=== PATIENT | male | born 1950 | race African-American/Black ===

== ENCOUNTER → 2016-05-14 | Outpatient (CLI) | payer OTHER ==
[~2016-05-14] MED LIST: AMLO10TA2 PO; ASPI81TA81; CAPT100T PO; CENTTAB8 PO; HYDR50TA3 PO; LISI40TA PO; METF1000 PO; METO50TA11 PO; PRAV20TA PO
[2016-05-14 12:07] LABS: ANION GAP 8 MEQ/L (5-15); BICARBONATE 31.4 MEQ/L (21.0-32.0); BLOOD UREA NITROGEN 14 MG/DL (7-18); CHLORIDE 104 MEQ/L (98-107); GLOMERULAR FILTRATION RATE 86 ML/MIN (>89); GLUCOSE,FASTING 89 MG/DL (74-99); POTASSIUM 3.4 MEQ/L (3.5-5.1); SODIUM (NA) 143 MEQ/L (136-145)
[2016-05-14 14:16] LABS: MICRO ALBUMIN RANDOM URINE RAW 20.9 MG/L (0.0-30.0)
[2016-05-14 17:14] LABS: HEMOGLOBIN A1a 1.4 %; HEMOGLOBIN A1b 1.7 %; HEMOGLOBIN Ao 84.6 %; HEMOGLOBIN LA1C 1.9 %; HEMOGLOBIN P3 3.8 %
== END ==
LOC: CLAB 10:57
PROVIDERS: ATTEND Family Medicine
DX: R73.03 Prediabetes (principal); I10 Essential (primary) hypertension; E78.5 Hyperlipidemia, unspecified
CPT/HCPCS: 36415; 80048; 82043; 83036